=== PATIENT | male | born 1955 | race Caucasian/White ===

== ENCOUNTER → 2017-06-01 | Day surgery (SDC) | payer MEDICAID ==
[~2017-06-01] MED LIST: ALUM5LIQ PO; BENZ100 PO; BUPIVACAINE HCL PF 0.5% 30 ML VIAL ONE; CETI5TAB2 PO; CHLORHEXIDINE GLUCONATE 2 % 1 PACK (2 CLOTHS) TOPICAL PRN; COLA100C PO; COUM7.5T PO; D-50TAB PO; DILT120C15 PO; ERGO1CAP30 PO; FLUT100A INH; GELFOAM SIZE 100 ONE; HEPARIN SODIUM - IV 10,000 UNITS/10 ML VIAL ONE; HYDR-3133 PO; INSULIN HUMAN REGULAR 1,000 UNITS/10 ML VIAL SQ PRN; LACTATED RINGER'S 1000 ML IV PRN; LACTCAP8 PO; METOPROLOL TARTRATE 25 MG TAB PO PRN; MIDO5TAB PO; NITR1SUB3 SL; OMEP40CA2 PO; OXYC1CAP8 PO; PHEN100C PO; POVIDONE IODINE 5% (ANTISEPSIS KIT) 4 APPLICATIONS EACH NARE PRN; PROM1SUP7 RECTAL; PROTAMINE SULFATE 50 MG/5 ML VIAL ONE; RENATAB5 PO; SODIUM CHLORID 0.9% 500 ML IV PRN; THROMBIN (TOPICAL) 5,000 UNIT VIAL ONE; ZOFR4TAB PO; [UNRECOGNIZED DRUG - CODE] TOPICAL
[2017-06-01 09:00] VITALS: BP 155/70; PULSE 76; RESP 18; TEMP 97.6; O2SAT 96
--- NOTE | 2017-06-01 09:32 | RADRPT ---
EXAM DATE/TIME: 06/01/2017 08:46 [facility] COMPARISON: No previous studies available for comparison. INDICATIONS : Evaluate for pneumonia, pneumothorax, or communicable disease. MEDICAL HISTORY : Stroke. SURGICAL HISTORY : None. ENCOUNTER: Initial ACUITY: 1 day PAIN SCORE: 0/10 LOCATION: Bilateral chest FINDINGS: There is a left IJ tunneled dialysis catheter in good position. Lungs are hyper aerated with mild int erstitial prominence. Right-sided pleural thickening in the mid and lower lung zones with associated air space disease most prominently in the right midlung zone likely reflecting scarring. There is johnson ited evaluation of the left lower lung zone conclusions due to overlying arm. There is a subtle lucen cy along the left lateral hemithorax which is likely projectional. Cardiomediastinal contours are wit hin normal limits. Bony thorax is grossly intact. CONCLUSION: 1. Subtle lucency along the inferior left lateral hemithorax is likely projectional although a subtle loculated pneumothorax cannot be excluded. Formal PA and lateral views with repositioning of the pat ient's arm if at all possible may be performed if there is continued clinical concern. 2. Pleural-parenchymal scarring in the right mid to lower lung zones. Adolfo Murphy MD on June 01, 2017 at 9:21 Board Certified Radiologist. This report was verified electronically.
--- NOTE | 2017-06-01 19:28 | EKG ---
Date Performed: 06/01/2017 Time Performed: 08:40:23 PTAGE: 62 years EKG: Sinus rhythm WITH OCCASIONAL VENTRICULAR PREMATURE COMPLEXES BORDERLINE ECG NO PREVIOUS TRACING DOCTOR: Pineda Lanier Interpretating Date/Time 06/01/2017 19:24:47
== END | disposition home or self-care (01) ==
LOC: HSDC 08:08
PROVIDERS: ATTEND Surgery
DX: I12.9 Hypertensive chronic kidney disease with stage 1 through stage 4 chronic kidney disease, or unspecified chronic kidney disease (principal); N18.9 Chronic kidney disease, unspecified; J44.9 Chronic obstructive pulmonary disease, unspecified; Z53.09 Procedure and treatment not carried out because of other contraindication
CPT/HCPCS: 71010; 80202; 93005; 99211; G0463; J1644; J2720

== ENCOUNTER → 2017-06-17 | Outpatient (CLI) | payer MEDICAID ==
[~2017-06-17] MED LIST changes: -BUPIVACAINE HCL PF 0.5% 30 ML VIAL ONE; +CALC667C PO; -CHLORHEXIDINE GLUCONATE 2 % 1 PACK (2 CLOTHS) TOPICAL PRN; +COUM4TAB PO; -GELFOAM SIZE 100 ONE; -HEPARIN SODIUM - IV 10,000 UNITS/10 ML VIAL ONE; -INSULIN HUMAN REGULAR 1,000 UNITS/10 ML VIAL SQ PRN; -LACTATED RINGER'S 1000 ML IV PRN; -METOPROLOL TARTRATE 25 MG TAB PO PRN; -POVIDONE IODINE 5% (ANTISEPSIS KIT) 4 APPLICATIONS EACH NARE PRN; -PROTAMINE SULFATE 50 MG/5 ML VIAL ONE; -SODIUM CHLORID 0.9% 500 ML IV PRN; -THROMBIN (TOPICAL) 5,000 UNIT VIAL ONE
[2017-06-17 12:55] LABS: HEMATOCRIT 35.9 % (39.0-51.0); MEAN CELL VOLUME 92.5 FL (80.0-100.0); MEAN CORPUSCULAR HEMOGLOBIN 30.2 PG (27.0-34.0); MEAN CORPUSCULAR HGB CONC 32.6 % (32.0-36.0); PLATELET COUNT 177 TH/MM3 (150-450); RED BLOOD COUNT 3.88 MIL/MM3 (4.50-5.90); RED CELL DISTRIBUTION WIDTH 14.7 % (11.6-17.2); REVIEW FLAG FINAL; WHITE BLOOD COUNT 9.8 TH/MM3 (4.0-11.0)
[2017-06-17 13:02] LABS: APTT (PATIENT) 27.1 SEC (24.3-30.1); PROTHROMBIN TIME - PATIENT 10.6 SEC (9.8-11.6)
[2017-06-17 13:36] LABS: BICARBONATE 23.7 MEQ/L (21.0-32.0); POTASSIUM 5.1 MEQ/L (3.5-5.1)
--- NOTE | 2017-06-17 15:25 | RADRPT ---
EXAM DATE/TIME: 06/17/2017 13:07 [facility] COMPARISON: No previous studies available for comparison. INDICATIONS : Evaluate for pneumonia, pneumothorax or communicable disease. Pre op right shoulder surgery. MEDICAL HISTORY : Stroke. Dialysis SURGICAL HISTORY : Dialysis catheter ENCOUNTER: Initial ACUITY: 1 day PAIN SCORE: 0/10 LOCATION: Bilateral chest FINDINGS: Dialysis catheter in good position. Lungs are hyperinflated with pleural-parenchymal changes on the right and all appear chronic. I have no remote chest films for comparison. The portion of the bony s keleton visualized is unremarkable. CONCLUSION: Chronic appearing changes right base. Paxton Chavez MD FACR on June 17, 2017 at 15:22 Board Certified Radiologist. This report was verified electronically.
--- NOTE | 2017-06-18 15:06 | EKG ---
Date Performed: 06/17/2017 Time Performed: 12:09:51 PTAGE: 62 years EKG: Sinus rhythm NORMAL ECG PREVIOUS TRACING 06/01/2017 08.40.23 Since previous tracing, no significant change noted DOCTOR: Hodan Good Interpretating Date/Time 06/18/2017 15:05:46
== END ==
LOC: CPRE 11:26
PROVIDERS: ATTEND Surgery
DX: Z01.810 Encounter for preprocedural cardiovascular examination (principal); Z01.812 Encounter for preprocedural laboratory examination; N18.6 End stage renal disease
CPT/HCPCS: 36415; 71020; 80048; 85027; 85610; 85730; 86850; 86900; 86901; 93005

== ENCOUNTER → 2017-06-29 | Day surgery (SDC) | payer MEDICAID ==
[~2017-06-29] VITALS: Ht 188 cm; Wt 81.6 kg
[~2017-06-29] MED LIST changes: +ACETAMINOPHEN/HYDROcodone 325 MG/5 MG TAB PO PRN; +BUPIVACAINE HCL PF 0.5% 30 ML VIAL ONE; +CHLORHEXIDINE GLUCONATE 2 % 1 PACK (2 CLOTHS) TOPICAL PRN; +DO NOT ADM ANY ANTICOAGULANT DRUGS PRN; +GELFOAM SIZE 100 ONE; +HEPARIN SODIUM - IV 10,000 UNITS/10 ML VIAL ONE; +Hemodialysis Vas Acc Cath PRN Heparin 1000 unit/ml Flush IV FLUSH; +Hemodialysis Vas Access Cath PRN NS Lock Flush IV FLUSH; +INSULIN HUMAN REGULAR 1,000 UNITS/10 ML VIAL SQ PRN; +LACTATED RINGER'S 1000 ML IV PRN; +MAGNESIUM SULFATE 1 GM/100 ML IV PRN; +METOPROLOL TARTRATE 25 MG TAB PO PRN; +MORPHINE SULFATE 4 MG/ML INJ IV PRN; +ONDANSETRON HCL 4 MG/2 ML VIAL IV PUSH PRN; +PHENYLEPH/NS 1000 MCG/10 ML SYR IV ONE; +POTASSIUM CHLOR 20 MEQ 100 ML x 2 BAGS IV PRN; +POTASSIUM CHLOR 20 MEQ/100 ML x 1 BAG IV PRN; +POTASSIUM PHOSPHATE 21 MMOL/NS 250 ML IV PRN; +POVIDONE IODINE 5% (ANTISEPSIS KIT) 4 APPLICATIONS EACH NARE PRN; +PROPOFOL 200 MG/20 ML AMP IV ONE; +PROTAMINE SULFATE 50 MG/5 ML VIAL ONE; +SODIUM CHLOR 0.9% 250 ML INJ 250 ML ONE; +SODIUM CHLORID 0.9% 500 ML IV PRN; +SODIUM CHLORIDE 0.9% FLUSH 10 ML FLUSH IV FLUSH PRN; +SODIUM CHLORIDE 0.9% FLUSH 10 ML FLUSH IV FLUSH SCH; +THROMBIN (TOPICAL) 20,000 UNIT SPRAY KIT ONE; +VANCOMYCIN HCL 1000 MG VIAL ONE; +ePHEDrine/NS 25 MG/5 ML SYR IV ONE
[2017-06-29 08:43] VITALS: BP 95/68; PULSE 86; RESP 18; TEMP 98; O2SAT 98
[2017-06-29 13:30] VITALS: BP 101/58; PULSE 90; RESP 18; TEMP 97.1; O2SAT 95
--- NOTE | 2017-06-30 15:15 | MP ---
cc: TYLER MAK DATE OF SURGERY: 06/29/2017 PREOPERATIVE DIAGNOSIS End-stage renal disease. POSTOPERATIVE DIAGNOSIS End-stage renal disease. PROCEDURE Right upper extremity brachial-brachial AV fistula. SURGEON Precious. IV FLUIDS 500 cc of crystalloid. ESTIMATED BLOOD LOSS Minimal. URINE OUTPUT Not calculated. COMPLICATIONS None. DISPOSITION To PACU. DETAILS OF PROCEDURE The patient's right upper extremity was prepped and draped in a sterile fashion after being under general anesthesia. I made an incision over the medial aspect of his right upper extremity with a scalpel and electrocautery. I dissected down with Metzenbaum scissors, the brachial vein and brachial artery. It should be noted the patient did get perioperative IV antibiotics before the procedure. I dissected free the brachial vein and the brachial artery and removed any side branches with small clips as needed. I then divided the brachial vein distally with two medium clips. After I divided it, it did insufflate appropriately with heparinized saline. I then fashioned it in a luis-shape appearance so that I could perform an end-to-side anastomosis. The brachial artery was controlled with vessel loops proximally and distally just above the antecubital fossa. I performed an arteriotomy with an 11 blade and Gunderson scissors. It should be noted that I did give the patient 3000 units of heparin before occluding the brachial artery. Once I made my arteriotomy I did an end-to-side anastomosis with 5-0 Prolene and a BB-1. At the end of the procedure there was a nice thrill in the brachial vein and there was triphasic signals in the radial artery and in the palmar arch at the level of the hand with good capillary refill. I did use Surgicel to help out with hemostasis and used 10 cc of 0.25% Marcaine with epinephrine over the incision to help out with postoperative pain. The patient was closed in layers with 2-0 Vicryl and 4-0 Monocryl suture, and Dermabond over the skin. DO NESTOR Doyle/MICHAEL /11:30 AM /3:03 PM
== END | disposition home or self-care (01) ==
LOC: HCVO 07:46
PROVIDERS: ATTEND Surgery
DX: I12.0 Hypertensive chronic kidney disease with stage 5 chronic kidney disease or end stage renal disease (principal); N18.6 End stage renal disease; J44.9 Chronic obstructive pulmonary disease, unspecified; G40.909 Epilepsy, unspecified, not intractable, without status epilepticus; Z99.2 Dependence on renal dialysis; Z86.73 Personal history of transient ischemic attack (TIA), and cerebral infarction without residual deficits; Z79.01 Long term (current) use of anticoagulants; Z79.891 Long term (current) use of opiate analgesic; Z79.51 Long term (current) use of inhaled steroids; Z79.899 Other long term (current) drug therapy
CPT/HCPCS: 01844; 36821; 76937; 84132; 86850; 86900; 86901; J1644; J2370; J3010; J3370; J7050; J2720

== ENCOUNTER → 2017-08-17 | Day surgery (SDC) | payer MEDICAID ==
[~2017-08-17] VITALS: Ht 180.3 cm; Wt 75.0 kg
[~2017-08-17] MED LIST changes: +*morphine SULFATE 8 MG/ML PERIprocedure ONLY ONE; -ACETAMINOPHEN/HYDROcodone 325 MG/5 MG TAB PO PRN; -ALUM5LIQ PO; -BUPIVACAINE HCL PF 0.5% 30 ML VIAL ONE; +BUPIVACAINE/EPINEPHRINE 0.5% 50 ML VIAL ONE; -COUM4TAB PO; +GELATIN 12 MM/7 MM FOAM ONE; +HEPARIN SODIUM - SQ 10,000 UNITS/ML VIAL ONE; -HYDR-3133 PO; -Hemodialysis Vas Acc Cath PRN Heparin 1000 unit/ml Flush IV FLUSH; -Hemodialysis Vas Access Cath PRN NS Lock Flush IV FLUSH; +LIDOCAINE HCL 1% PF 5 ML AMPULE OTHER ONE; +MIDAZOLAM HCL 2 MG/2 ML VIAL IV ONE; -MORPHINE SULFATE 4 MG/ML INJ IV PRN; +MORPHINE SULFATE 4 MG/ML INJ IV PUSH PRN; -NITR1SUB3 SL; +PERC5TAB12 PO; +PHENYLEPHRINE HCL 10 MG/ML VIAL IV ONE; +PROPOFOL 200 MG/20 ML AMP ONE; -PROTAMINE SULFATE 50 MG/5 ML VIAL ONE; -SODIUM CHLOR 0.9% 250 ML INJ 250 ML ONE; -THROMBIN (TOPICAL) 20,000 UNIT SPRAY KIT ONE; +THROMBIN (TOPICAL) 5,000 UNIT VIAL ONE; -VANCOMYCIN HCL 1000 MG VIAL ONE; -[UNRECOGNIZED DRUG - CODE] TOPICAL; +ceFAZolin 2 GM PREMIX 50 ML ONE
--- NOTE | 2017-08-17 08:25 | RADRPT ---
EXAM DATE/TIME: 08/17/2017 08:02 [facility] COMPARISON: CHEST SINGLE AP, June 01, 2017, 8:46. INDICATIONS : Evaluate for pneumonia, pneumothorax or communicable disease. Preop chest for right upper extremity a ccess revison MEDICAL HISTORY : Stroke. renal failure, dialysis SURGICAL HISTORY : dialysis catheter ENCOUNTER: Initial ACUITY: 1 day PAIN SCORE: Non-responsive. LOCATION: Bilateral chest FINDINGS: The cardiac silhouette is normal in transverse diameter. The lungs are free of acute parenchymal opac ity. No effusions are identified. A permacath is in place via left internal jugular approach with its tip in the superior vena cava. Multiple old right rib fractures are present with pleural thickening. The lungs are hyperinflated. CONCLUSION: 1. Findings of COPD. No acute cardiopulmonary disease. Alvin Lam MD on August 17, 2017 at 8:22 Board Certified Radiologist. This report was verified electronically.
[2017-08-17 10:53] LABS: AUTOMATED NEUTROPHIL # 4.3 TH/MM3 (1.8-7.7); BASOPHIL # 0.1 TH/MM3 (0-0.2); BASOPHIL % 0.8 % (0.0-2.0); EOSINOPHIL # 0.3 TH/MM3 (0-0.4); EOSINOPHIL % 5.1 % (0.0-4.0); HEMATOCRIT 30.2 % (39.0-51.0); HEMO FLAGS DIFF FINAL; LYMPH % 19.3 % (9.0-44.0); LYMPHOCYTE # 1.3 TH/MM3 (1.0-4.8); MEAN CELL VOLUME 93.8 FL (80.0-100.0); MEAN CORPUSCULAR HEMOGLOBIN 31.3 PG (27.0-34.0); MEAN CORPUSCULAR HGB CONC 33.4 % (32.0-36.0); MONO % 9.5 % (0.0-8.0); NEUT % 65.3 % (16.0-70.0); PLATELET COUNT 110 TH/MM3 (150-450); RED BLOOD COUNT 3.22 MIL/MM3 (4.50-5.90); RED CELL DISTRIBUTION WIDTH 14.2 % (11.6-17.2); WHITE BLOOD COUNT 6.6 TH/MM3 (4.0-11.0)
[2017-08-17 11:00] LABS: BICARBONATE 24.6 MEQ/L (21.0-32.0); POTASSIUM 5.6 MEQ/L (3.5-5.1)
--- NOTE | 2017-08-17 13:15 | MP ---
cc: TYLER MAK DATE OF SURGERY 08/17/2017 PREOPERATIVE DIAGNOSIS Right upper extremity brachial/basilic A-V fistula transposition. POSTOPERATIVE DIAGNOSIS Right upper extremity brachial/basilic A-V fistula transposition. SURGEON Tyler Mak, TAPE EDGE MACHINE OPERATOR SURGEON Rodney NIELSON INTRAVENOUS FLUIDS 125 cc crystalloid. ANESTHESIA MAC with approximately 30 cc of 0.5% Marcaine with epinephrine. ESTIMATED BLOOD LOSS 250 cc. URINE OUTPUT None calculated. COMPLICATIONS None. DISPOSITION To PACU. PROCEDURE The patient's right upper extremity was prepped and draped in a sterile fashion after being under MAC anesthesia. I used ultrasound to determine the identification of a patent A-V fistula between the brachial artery and the brachial vein. It should be noted that the mid to the upper basilic vein was more dilated than the upper brachial vein. I used approximately 20 cc of 0.25% Marcaine with epinephrine initially and then 10% at the end of the case in order to anesthetize the skin. I used a scalpel and electrocautery. I dissected down and tied off branches with 2-0 and 4-0 silk as well as small and medium clips as needed. I divided the branches off to the brachial vein and then transitioned to the basilic vein. I marked the vein. I did mobilize it. It should be noted that, once I had it fully mobilized, I closed the deep fascia with interrupted 2-0 Vicryl absorbable sutures. I did use Claudio and Surgicel to help out with hemostasis as well as Thromb in and Gelfoam as the patient had some superficial varicosities. Once I closed the deep layer, I divided the vein and then made a tunnel just lateral to my skin incision with a curved tunneler. I pulled the vein through to make sure it was marked so there was no twist in it. Once I pulled it through, I performed end-to-end anastomosis to the brachial vein as I divided it before pulling it through and then afterwards performed my anastomosis with 5-0 on a VV1. Afterwards there was good flow through the vessel both by Doppler and palpation. The patient had a radial artery signal that was triphasic. I did close with multiple interrupted 2-0 and 3-0 Vicryl absorbable sutures and then a 4-0 Monocryl for the skin with Dermabond. It should be noted that the patient tolerated the procedure well and had a nice thrill at the end of the case through the actual fistula itself. DO NESTOR Doyle/ADALBERTO /12:57 PM /1:02 PM
[2017-08-17 14:15] VITALS: TEMP 96.4
[2017-08-17 15:02] VITALS: BP 116/72; PULSE 92; RESP 18; O2SAT 98
== END | disposition home or self-care (01) ==
LOC: HSDC 07:25
PROVIDERS: ATTEND Surgery
DX: I12.0 Hypertensive chronic kidney disease with stage 5 chronic kidney disease or end stage renal disease (principal); N18.6 End stage renal disease; J44.9 Chronic obstructive pulmonary disease, unspecified
CPT/HCPCS: 01844; 36819; 71010; 76937; 80048; 85025; 86850; 86900; 86901; J0690; J1644; J2250; J2270; J2370; J3010

== ENCOUNTER → 2018-02-01 | Day surgery (SDC) | payer MEDICAID ==
[~2018-02-01] MED LIST changes: -*morphine SULFATE 8 MG/ML PERIprocedure ONLY ONE; -BUPIVACAINE/EPINEPHRINE 0.5% 50 ML VIAL ONE; -COLA100C PO; +COLA100C5 PO; -DO NOT ADM ANY ANTICOAGULANT DRUGS PRN; -ERGO1CAP30 PO; -GELATIN 12 MM/7 MM FOAM ONE; -GELFOAM SIZE 100 ONE; -HEPARIN SODIUM - IV 10,000 UNITS/10 ML VIAL ONE; -HEPARIN SODIUM - SQ 10,000 UNITS/ML VIAL ONE; -INSULIN HUMAN REGULAR 1,000 UNITS/10 ML VIAL SQ PRN; -LIDOCAINE HCL 1% PF 5 ML AMPULE OTHER ONE; -MAGNESIUM SULFATE 1 GM/100 ML IV PRN; -MIDAZOLAM HCL 2 MG/2 ML VIAL IV ONE; -MORPHINE SULFATE 4 MG/ML INJ IV PUSH PRN; -ONDANSETRON HCL 4 MG/2 ML VIAL IV PUSH PRN; +OXYC1CAP2 PO; -OXYC1CAP8 PO; -PHENYLEPH/NS 1000 MCG/10 ML SYR IV ONE; -PHENYLEPHRINE HCL 10 MG/ML VIAL IV ONE; -POTASSIUM CHLOR 20 MEQ 100 ML x 2 BAGS IV PRN; -POTASSIUM CHLOR 20 MEQ/100 ML x 1 BAG IV PRN; -POTASSIUM PHOSPHATE 21 MMOL/NS 250 ML IV PRN; -PROPOFOL 200 MG/20 ML AMP IV ONE; -PROPOFOL 200 MG/20 ML AMP ONE; -SODIUM CHLORIDE 0.9% FLUSH 10 ML FLUSH IV FLUSH SCH; -THROMBIN (TOPICAL) 5,000 UNIT VIAL ONE; +VITA500012 PO; -ceFAZolin 2 GM PREMIX 50 ML ONE; -ePHEDrine/NS 25 MG/5 ML SYR IV ONE
[2018-02-01 11:50] LABS: BASOPHIL % 0.3 % (0.0-2.0); EOSINOPHIL # 0.1 TH/MM3 (0-0.4); EOSINOPHIL % 0.9 % (0.0-4.0); HEMATOCRIT 34.5 % (39.0-51.0); HEMOGLOBIN 11.5 GM/DL (13.0-17.0); LYMPH % 10.5 % (9.0-44.0); LYMPHOCYTE # 1.5 TH/MM3 (1.0-4.8); MEAN CELL VOLUME 93.5 FL (80.0-100.0); MEAN CORPUSCULAR HEMOGLOBIN 31.3 PG (27.0-34.0); MEAN CORPUSCULAR HGB CONC 33.4 % (32.0-36.0); MEAN PLATELET VOLUME 9.4 FL (7.0-11.0); MONO % 10.8 % (0.0-8.0); MONOCYTE # 1.5 TH/MM3 (0-0.9); NEUT % 77.5 % (16.0-70.0); PLATELET COUNT 153 TH/MM3 (150-450); RED BLOOD COUNT 3.69 MIL/MM3 (4.50-5.90); RED CELL DISTRIBUTION WIDTH 14.4 % (11.6-17.2); WHITE BLOOD COUNT 14.1 TH/MM3 (4.0-11.0)
[2018-02-01 11:56] LABS: INTERNATIONAL NORMALIZED RATIO 1.1 RATIO; PROTHROMBIN TIME - PATIENT 10.7 SEC (9.8-11.6)
[2018-02-01 12:11] LABS: BICARBONATE 21.4 MEQ/L (21.0-32.0); CALCIUM 8.8 MG/DL (8.5-10.1); CREATININE 7.1 MG/DL (0.60-1.30)
[2018-02-01 12:38] LABS: BANDS 6 % (0-6); LYMPHOCYTES 15 % (9-44); METAMYELOCYTES 1 % (0-1); MONOCYTES 5 % (0-8); MYELOCYTES 4 % (0-0); NEUTROPHIL # MANUAL DIFF 11.1 TH/MM3 (1.8-7.7); POLYS (SEG NEUTROPHILS) 68 % (16-70)
--- NOTE | 2018-02-02 16:13 | EKG ---
Date Performed: 02/01/2018 Time Performed: 11:26:51 PTAGE: 62 years EKG: Sinus rhythm WITH OCCASIONAL VENTRICULAR PREMATURE COMPLEXES BORDERLINE ECG NO PREVIOUS TRACING DOCTOR: Quentin Mahan Interpretating Date/Time 02/02/2018 16:11:49
== END | disposition home or self-care (01) ==
LOC: HSDC 10:36
PROVIDERS: ATTEND Surgery
DX: N18.6 End stage renal disease (principal); R94.31 Abnormal electrocardiogram [ECG] [EKG]; Z53.09 Procedure and treatment not carried out because of other contraindication; R05 Cough
CPT/HCPCS: 80048; 85007; 85027; 85610; 86850; 86900; 86901; 93005; 99211; G0463

== ENCOUNTER → 2018-02-15 | Day surgery (SDC) | payer MEDICAID ==
[~2018-02-15] MED LIST changes: +INSULIN HUMAN REGULAR 1,000 UNITS/10 ML VIAL SQ PRN; -SODIUM CHLORIDE 0.9% FLUSH 10 ML FLUSH IV FLUSH PRN
[2018-02-15 10:33] VITALS: BP 123/78; PULSE 86; RESP 16; TEMP 98.6; O2SAT 99
== END | disposition home or self-care (01) ==
LOC: HSDC 09:30 → EDSTATUS 11:00
PROVIDERS: ATTEND Surgery
DX: N18.6 End stage renal disease (principal); I12.0 Hypertensive chronic kidney disease with stage 5 chronic kidney disease or end stage renal disease; R05 Cough; Z53.09 Procedure and treatment not carried out because of other contraindication
CPT/HCPCS: 99211; G0463